=== PATIENT | female | born 1985 | race Hispanic/Latino ===

== ENCOUNTER 2018-07-21 13:23 | Outpatient (CLI) | payer OTHER ==
--- NOTE | 2018-07-21 15:45 | ULT ---
RENAL ULTRASOUND: 07/21/18 HISTORY: Recurrent urinary tract infection. patient. COMPARISON: None. TECHNIQUE: Sagittal and transverse imaging of the kidneys is performed. FINDINGS: Bilaterally, no hydronephrosis. Right kidney measures 9.8 x 6.2 x 5.2 cm. Left kidney measures 11.2 x 5.5 x 4.7 cm. Unremarkable urinary bladder. Intrauterine gestation is identified with the hea rt tone of 132 beats per minute. IMPRESSION: No hydronephrosis. POS: [facility]
== END 2018-07-21 13:24 | disposition home or self-care (01) ==
LOC: BICULT 13:23
PROVIDERS: ATTEND Family Medicine
DX: O23.40 Unspecified infection of urinary tract in pregnancy, unspecified trimester (principal)
CPT/HCPCS: 76770

== ENCOUNTER 2018-08-03 14:06 | Inpatient (IN) | payer OTHER ==
--- NOTE | 2018-08-03 16:09 | PDOC.FPROB ---
FMR OB H&P: HPI - History of Present Illness Chief Complaint: Refractory Bacteruria in History of Present Illness: 33 yo @ 26.1 wks by 8.1 wk sono is admitted for IV antibiotics. Has had hx of UTI in , most recently treated with Augmentin, currently taking it. Urine culture from PN sensitivity showed Morganella resistant to PO antibiotics. She came to be admitted for IV abx. Reports 1 week of contractions. Denies dysuria, fever/chills, vaginal discharge, bleeding. Feels movement. Reports normal PO intake. Has also had bilateral back/side pain. [facility] H&P: Current - Care : 4 Para: 3003 Gestational age: 26.1 weeks Due date: 11/08/18 Dating Criteria: 8.1 week sono Course/Complications: Persistent bacteruria in and 2 UTIs. Second one complicated by poly- antimicrobial resistance. - OB Labs Blood type: O RH: negative Antibody Screen: negative HIV: negative RPR: negative HepBsAg: negative Rubella: non-immune Urine drug screen: not done Gonorrhea: negative Chlamydia: negative Pap Smear: NILM/HPV negative on 04/05/18 1 hour gtt: 146 A1c: 5.6 H&H: 11.4/33.8 on 07/28/18 Platelets: 254 on 07/28/28 Additional labs: Quantiferon gold negative on 03/25/18. - First Trimester Ultrasound First trimester: U/S inconsistent w/ dates w/ GA of 8.1 weeks with new EDS of 11/08/18 based on U/ S. Cardiac activity noted nad sIUP confirmed. - Anatomy Survey Anatomy survey: Male fetus w/ no anamolies seen. No cervical funneling or shrotening noted. Posterior placenta. EFW: 256g (80% by Hadlock). FMR OB H&P: History - Past Medical History PMH: none - OB History OB History: Persistent bacteruria seen 05/05/18 (Morganella morganii), 06/02/18 (proteus mirabilis), & 07/02/18 (proteus). UTI on 03/25/18 + for Proteus Mirabilis pansensative treated w/ PO Augmentin. Second UTI on 07/29/18 + for morganella morganii resistant to all but rocephin, cipro, levo, zosyn, and bactrim. 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 - Family History Family History: DM FMR OB H&P: Medications - Current Home Medications: Medication Instructions Recorded Confirmed Type Amoxicillin/Potassium Clav 1 tablet PO DAILY 08/03/18 08/03/18 History [Augmentin 500-125 Tablet] Allergies/Adverse Reactions: Allergies Allergy/AdvReac Type Severity Reaction Status Date / Time No Known Allergies Allergy Verified 08/03/18 19:21 FMR OB H&P: ROS - Review of Systems General: denies: fever/chills, weight/appetite/sleep changes Genitourinary (Female): reports: contractions. denies: dysuria, hematuria, vaginal discharge, vaginal bleeding Musculoskeletal: reports: pain. denies: tenderness FMR OB H&P: Vital Signs - Maternal Vital signs: 98.1, 80, 20, 99% on RA, 132/78 FMR OB H&P: Physical Exam - Physical Exam General: NAD, awake, alert and oriented HEENT: normocephalic and atraumatic Heart: RRR, no murmurs/rubs/gallops General: CTAB, no respiratory distress, no wheezing Abdomen: soft, gravid, non-tender, bowel sound present Musculoskeletal: other (Negative Lionel punch) Skin: good tugor, capillary refill <2 seconds FMR OB H&P: A/P - Problem List (1) Complicated UTI (urinary tract infection) Status: Acute Code(s): N39.0 - URINARY TRACT INFECTION, SITE NOT SPECIFIED (2) Recurrent urinary tract infection complicating Status: Chronic Code(s): O23.40 - UNSP INFECTION OF URINARY TRACT IN , UNSP TRIMESTER (3) Rubella non-immune status, antepartum Status: Chronic Code(s): O99.89 - OTH DISEASES AND CONDITIONS COMPL PREG/ CHLDBRTH; Z28.3 - UNDERIMMUNIZATION STATUS (4) Rh negative status during Status: Chronic Code(s): O26.899 - OTH RELATED CONDITIONS, UNSPECIFIED TRIMESTER; Z67.91 - UNSPECIFIED BLOOD TYPE, RH NEGATIVE (5) BMI 32.0-32.9,adult Status: Chronic Code(s): Z68.32 - BODY MASS INDEX (BMI) 32.0-32.9, ADULT Discussion: Date/Time: 08/03/18 1607 Persistent bacteriuria in - VSS, normal WBC. No current concern for pyelo. - has been currently taking Augmentin - will get UA, Ucx - Tolerating PO intake, will not start IVF at this time. - previous Ucx grew Morganella sensitive to Rocephin. Start Rocephin (08/03). Rubella non-immune Rh negative Diet: Regular Dispo: Admit to inpatient for IV antibiotics This H&P was discussed with Dr. Samuels and Dr. Couch who agree with the above documentation and plan. FMR OB H&P: Upper Level - Discussion Upper Level Attestation: Date/Time: 08/03/18 191 33 y/o F @ 26.1 wks w/ hx of persistent bacteruria w/ recent UCx growing Morganella resistant to PO abx direct admitted for IV abx from [facility]. Vital signs per international account executive note No abnormal findings on exam Outside UCx results requested Assessment and Plan: 33 y/o F w/: 1) Persistent Bacteriuria in - Will admit and start patient on IV Rocephin as recent UCx showed Morganella growing to be sensitive to this - Repeat UCx prior to starting IV abx - IVF at [facility] - CBC and CMP pending at time of note 2) Other problems per international account executive note Addendum - Attending - Attending Attestation Date/Time: 08/04/18 7990 I personally evaluated the patient and discussed the management with Dr. Callaway and Abril on 08/03/2018. I agree with and repeated the History, Examination, Assessment and Plan documented above with any addition or exceptions noted below. Asymptomatic on my exam. Will d/w Dr. Berkowitz in AM as unusual infection and has previously been Sn to ceftriaxone and persists despite previous treatment.
[2018-08-03] MEDS ORDERED: Ondansetron ODT 4 MG TAB PO PRN (16:24)
[2018-08-03] MEDS ORDERED: Acetaminophen 325 MG TAB PO PRN (16:24)
[2018-08-03] MEDS ORDERED: Lactated Ringer's 1,000 ML IV SCH (16:30)
[2018-08-03 17:20] LABS: #Eosinphils 0.1 thou/uL (0.0-0.7); #Lymphocytes 2.1 thou/uL (1.20-3.40); #Monocytes 0.4 thou/uL (0.11-0.59); #Neutrophils 4.4 thou/uL (1.40-6.50); %Basophils 0.4 % (0.0-1.0); %Eosinophils 1.3 % (0.0-10.0); %Lymphocytes 29.4 % (21.0-51.0); %Monocytes 6.3 % (0.0-10.0); %Neutrophils 62.7 % (42.0-75.0); Hemoglobin 12.4 g/dL (12.0-16.0); Mean Corpuscular Volume 85.2 fL (78.0-98.0); Mean Platelet Volume 7.1 fL (7.4-10.4); Platelet Count 245 thou/uL (130-400); RBC Distribution Width 11.6 % (11.5-14.5); Red Blood Cell (RBC) Count 4.27 mill/uL (4.20-5.40); White Blood Cell (WBC) Count 7.1 thou/uL (4.8-10.8)
[2018-08-03 17:47] LABS: ALT (SGPT) 15 U/L (8-55); AST (SGOT) 14 U/L (5-34); Albumin 3.7 g/dL (3.5-5.0); Alkaline Phosphatase 93 U/L (40-150); Anion Gap 13 mmol/L (10-20); BUN (Urea Nitrogen) 6 mg/dL (7.0-18.7); Bilirubin, Total 0.2 mg/dL (0.2-1.2); Calc. Creatinine Clearance 0 mL/min (70-130); Calcium 9.3 mg/dL (7.8-10.44); Carbon Dioxide 22 mmol/L (22-29); Chloride 106 mmol/L (98-107); Estimated GFR-MDRD Greater than 90; Globulin 3.3 g/dL (2.4-3.5); Glucose 80 mg/dL (70-105); Potassium 3.7 mmol/L (3.5-5.1); Sodium 137 mmol/L (136-145)
[2018-08-03] MEDS ORDERED: Sodium Chloride 0.9% 10 ML ONE (17:48)
[2018-08-03 18:24] VITALS: BMI 34.0
[2018-08-03 19:27] LABS: Bilirubin Negative (Negative); Blood, Urine Negative (Negative); Clarity CLEAR (Clear); Glucose, Urine (Dipstick) Negative (Negative); Leukocyte Negative (Negative); Nitrite Negative (Negative); Protein, Urine (Dipstick) Trace mg/dL (Neg-Trace); Specific Gravity, Urine 1.022 (1.002-1.036)
[2018-08-03 19:30] LABS: Bacteria/HPF None Seen HPF (None Seen); Hyaline Casts/LPF 0-3 HYALINE CAST LPF (0-3 Hyaline); Pathc Cast-AUWi Flag 0.14 (0-2.49); RBC/HPF 0-3 HPF (0-3); WBC/HPF 0-3 HPF (0-3)
[2018-08-03] MEDS: cefTRIAXone\\ROCEPHIN 1 GM in Sodium Chloride 0.9% 100 ML IVPB SCH (20:25)
[2018-08-04 06:10] LABS: #Eosinphils 0.1 thou/uL (0.0-0.7); #Lymphocytes 2.3 thou/uL (1.20-3.40); #Monocytes 0.4 thou/uL (0.11-0.59); #Neutrophils 3.4 thou/uL (1.40-6.50); %Basophils 0.8 % (0.0-1.0); %Eosinophils 1.3 % (0.0-10.0); %Lymphocytes 36.9 % (21.0-51.0); %Monocytes 5.7 % (0.0-10.0); %Neutrophils 55.4 % (42.0-75.0); Hemoglobin 11.4 g/dL (12.0-16.0); Mean Corpuscular HGB CONC 34.2 g/dL (32.0-36.0); Mean Corpuscular Hemoglobin 29.1 pg (27.0-31.0); Mean Corpuscular Volume 85.1 fL (78.0-98.0); Mean Platelet Volume 7.4 fL (7.4-10.4); Platelet Count 232 thou/uL (130-400); RBC Distribution Width 11.5 % (11.5-14.5); Red Blood Cell (RBC) Count 3.92 mill/uL (4.20-5.40); White Blood Cell (WBC) Count 6.2 thou/uL (4.8-10.8)
--- NOTE | 2018-08-04 06:35 | PDOC.OBAPN ---
FMR OB AP PN: Sub - Interval History Hospital Day: 2 Chief Complaint: Complicated UTI in . Indentification: Interval History: Admitted last night for complicated UTI and started on IV Abx. FMR OB AP PN: Obj - Maternal Vital signs: BP: 97/55 HR: 69 RR: 20 Tmax: 98F Pox: 98% on RA Wt: 81.647 kg - Urine output I&O: 08/02/18 08/03/18 08/04/18 06:59 06:59 06:59 Intake Total 820 Output Total 500 Balance 320 - Heart Tones Baseline: 136 (obtained via doppler @ ~00:36) FMR OB AP PN: Exam - Physical Exam General: NAD, awake, alert and oriented HEENT: normocephalic and atraumatic, grossly normal vision, grossly normal hearing Neck: supple, FROM Heart: RRR, normal S1/S2, no murmurs/rubs/gallops, pulses present, no edema General: CTAB, no respiratory distress, good air movement, no rales/rhonchi, no wheezing Abdomen: soft, gravid, non-tender, bowel sound present Musculoskeletal: pulses present, FROM in all four extremities Neurological: cranial nerves II through XII intact, sensation to pain,touch and proprioception grossly normal, no focal deficit Skin: no rash, good tugor, capillary refill <2 seconds Lymphatic: no unusual bruising or bleeding, no purpura, no petechia Psychiatric: intact recent and remote memory, good judgement and insight, normal mood and affect FMR OB AP PN: Data - Labs Lab results: Laboratory Results - last 24 hr 08/03/18 08/03/18 08/03/18 17:11 17:11 19:00 WBC 7.1 RBC 4.27 Hgb 12.4 Hct 36.3 MCV 85.2 MCH 29.0 MCHC 34.0 RDW 11.6 Plt Count 245 MPV 7.1 L Neutrophils % 62.7 Lymphocytes % 29.4 Monocytes % 6.3 Eosinophils % 1.3 Basophils % 0.4 Neutrophils # 4.4 Lymphocytes # 2.1 Monocytes # 0.4 Eosinophils # 0.1 Basophils # 0.0 Sodium 137 Potassium 3.7 Chloride 106 Carbon Dioxide 22 Anion Gap 13 BUN 6 L Creatinine 0.57 L Estimated GFR (MDRD) Greater than 90 Glucose 80 Calcium 9.3 Total Bilirubin 0.2 AST 14 ALT 15 Alkaline Phosphatase 93 Serum Total Protein 7.0 Albumin 3.7 Globulin 3.3 Albumin/Globulin Ratio 1.1 L Urine Color YELLOW Urine Clarity CLEAR Urine pH 6.0 Ur Specific [place] 1.022 Urine Protein Trace Urine Glucose (UA) Negative Urine Ketones 40 H Urine Blood Negative Urine Nitrite Negative Urine Bilirubin Negative Urine Urobilinogen 1.0 Ur Leukocyte Esterase Negative Urine RBC 0-3 Urine WBC 0-3 Ur Squamous Epith Cells 7-10 H Urine Bacteria None Seen Hyaline Casts 0-3 HYALINE CAST 08/04/18 05:47 WBC 6.2 RBC 3.92 L Hgb 11.4 L Hct 33.3 L MCV 85.1 MCH 29.1 MCHC 34.2 RDW 11.5 Plt Count 232 MPV 7.4 Neutrophils % 55.4 Lymphocytes % 36.9 Monocytes % 5.7 Eosinophils % 1.3 Basophils % 0.8 Neutrophils # 3.4 Lymphocytes # 2.3 Monocytes # 0.4 Eosinophils # 0.1 Basophils # 0.0 Sodium Potassium Chloride Carbon Dioxide Anion Gap BUN Creatinine Estimated GFR (MDRD) Glucose Calcium Total Bilirubin AST ALT Alkaline Phosphatase Serum Total Protein Albumin Globulin Albumin/Globulin Ratio Urine Color Urine Clarity Urine pH Ur Specific [place] Urine Protein Urine Glucose (UA) Urine Ketones Urine Blood Urine Nitrite Urine Bilirubin Urine Urobilinogen Ur Leukocyte Esterase Urine RBC Urine WBC Ur Squamous Epith Cells Urine Bacteria Hyaline Casts FMR OB AP PN: A/P - Problem List (1) Complicated UTI (urinary tract infection) Status: Acute Code(s): N39.0 - URINARY TRACT INFECTION, SITE NOT SPECIFIED (2) Recurrent urinary tract infection complicating Status: Chronic Code(s): O23.40 - UNSP INFECTION OF URINARY TRACT IN , UNSP TRIMESTER (3) Rubella non-immune status, antepartum Status: Chronic Code(s): O99.89 - OTH DISEASES AND CONDITIONS COMPL PREG/ CHLDBRTH; Z28.3 - UNDERIMMUNIZATION STATUS (4) Rh negative status during Status: Chronic Code(s): O26.899 - OTH RELATED CONDITIONS, UNSPECIFIED TRIMESTER; Z67.91 - UNSPECIFIED BLOOD TYPE, RH NEGATIVE (5) BMI 32.0-32.9,adult Status: Chronic Code(s): Z68.32 - BODY MASS INDEX (BMI) 32.0-32.9, ADULT Disposition: Complicated UTI: - Per [facility] records, most recently diagnosed UTI last week resistant to augmentin which the patient has been taking. UA on admission showed only ketones & 7-10 squams. No bacteria, LE, nitrite, or blood noted. Ucx pending. - Will likely continue IV Abx pending urine Cx given patient's history or recurrent UTI and bacteruria. Will encourage more frequent and complete bladder emptying. - Tolerating PO intake, will encourage increased PO hydration given UA results and the fact that evening nurse reported having to encourage patient to urinate all night. Rubella non-immune: - Aware, will need MMR vaccine post-. Rh negative: - Aware, will need Rhogam injection at 28 weeks gestation. Obesity: - Aware, will encourage lifestyle changes. Diet: Regular IVFs: none Abx: Rocephin (day #2) Dispo: Will likely stay at least one additional night pending urine culture results. Discussion: Date/Time: 08/04/18631 This H&P was discussed with Dr. Nguyen and Dr. Couch who agree with the above documentation and plan. Addendum - Attending - Attending Attestation Date/Time: 08/04/182044 I personally evaluated the patient and discussed the management with Dr. Stroud and Patrick. I agree with and repeated the History, Examination, Assessment and Plan documented above with any addition or exceptions noted below. Would d/w ID as unusual organism and has failed this treatment IM previously.
[2018-08-04 06:37] LABS: ALT (SGPT) 12 U/L (8-55); AST (SGOT) 12 U/L (5-34); Albumin 3.2 g/dL (3.5-5.0); Alkaline Phosphatase 79 U/L (40-150); Anion Gap 11 mmol/L (10-20); BUN (Urea Nitrogen) 5 mg/dL (7.0-18.7); Bilirubin, Total 0.3 mg/dL (0.2-1.2); Calc. Creatinine Clearance 202 mL/min (70-130); Calcium 8.8 mg/dL (7.8-10.44); Carbon Dioxide 21 mmol/L (22-29); Chloride 108 mmol/L (98-107); Estimated GFR-MDRD Greater than 90; Globulin 2.7 g/dL (2.4-3.5); Glucose 71 mg/dL (70-105); Potassium 3.5 mmol/L (3.5-5.1); Protein, Total 5.9 g/dL (6.0-8.3); Sodium 136 mmol/L (136-145)
[2018-08-04] MEDS: Prenatal Vitamin 1 TAB PO SCH (08:03)
[2018-08-04] MEDS: cefTRIAXone\\ROCEPHIN 1 GM in Sodium Chloride 0.9% 100 ML IVPB SCH (20:56)
--- NOTE | 2018-08-05 06:13 | PDOC.OBAPN ---
R OB AP PN: Sub - Interval History Hospital Day: 3 Chief Complaint: Complicated UTI Indentification: Interval History: Patient is on day #3 of IV abx. Urine Cx from admission grew Proteus. R OB AP PN: Obj - Maternal Vital signs: BP: 103/59 HR: 75 RR: 16 Tmax: 98.3F Pox: 96% on RA Wt: 81.647 kg - Urine output I&O: 08/03/18 08/04/18 08/05/18 06:59 06:59 06:59 Intake Total 820 336 Output Total 500 Balance 320 336 - Heart Tones Baseline: 137 (@ 21:00 on 08/04/18) [facility] OB AP PN: Exam - Physical Exam General: NAD, awake, alert and oriented HEENT: normocephalic and atraumatic, grossly normal vision, grossly normal hearing Neck: supple, FROM Heart: RRR, normal S1/S2, no murmurs/rubs/gallops, pulses present, no edema General: CTAB, no respiratory distress, good air movement, no rales/rhonchi, no wheezing Abdomen: soft, gravid, non-tender, bowel sound present Musculoskeletal: FROM in all four extremities Neurological: cranial nerves II through XII intact, sensation to pain,touch and proprioception grossly normal, no focal deficit Skin: no rash, good tugor, capillary refill <2 seconds, no jaundice Lymphatic: no unusual bruising or bleeding, no purpura, no petechia Psychiatric: intact recent and remote memory, good judgement and insight, normal mood and affect [facility] OB AP PN: Data - Labs Lab results: Laboratory Results - last 24 hr 08/04/18 05:47 Sodium 136 Potassium 3.5 Chloride 108 H Carbon Dioxide 21 L Anion Gap 11 BUN 5 L Creatinine 0.52 L Estimated GFR (MDRD) Greater than 90 Glucose 71 Calcium 8.8 Total Bilirubin 0.3 AST 12 ALT 12 Alkaline Phosphatase 79 Serum Total Protein 5.9 L Albumin 3.2 L Globulin 2.7 Albumin/Globulin Ratio 1.2 Microbiology 08/03/18 19:00 Urine clean catch Urine Culture - Preliminary Presumptive Proteus mirabilis [facility] OB AP PN: A/P - Problem List (1) Asymptomatic bacteriuria during Status: Acute Code(s): O99.89 - OTH DISEASES AND CONDITIONS COMPL PREG/ CHLDBRTH; R82.71 - BACTERIURIA (2) Complicated UTI (urinary tract infection) Status: Acute Code(s): N39.0 - URINARY TRACT INFECTION, SITE NOT SPECIFIED (3) Recurrent urinary tract infection complicating Status: Chronic Code(s): O23.40 - UNSP INFECTION OF URINARY TRACT IN , UNSP TRIMESTER (4) Rubella non-immune status, antepartum Status: Chronic Code(s): O99.89 - OTH DISEASES AND CONDITIONS COMPL PREG/ CHLDBRTH; Z28.3 - UNDERIMMUNIZATION STATUS (5) Rh negative status during Status: Chronic Code(s): O26.899 - OTH RELATED CONDITIONS, UNSPECIFIED TRIMESTER; Z67.91 - UNSPECIFIED BLOOD TYPE, RH NEGATIVE (6) BMI 32.0-32.9,adult Status: Chronic Code(s): Z68.32 - BODY MASS INDEX (BMI) 32.0-32.9, ADULT Disposition: Asymptomatic persistent bacteruria in : - UA on admission negative but culture now showing suspected Proteus Mirabilis which is different from recent culture done in clinic on 07/28 which grew nearly hernandez-resistant Morganella. Patient has alternated between proteus and morganella throughout . - Due to history will give 3rd dose of IV Rocephin today and encourage increased PO hydration and regular bladder emptying. - Will get a straight cath UA sample today to assess effectiveness of treatment and get a renal U/S as well to r/o any potential predisposing factors such as a stone that could explain the patient's persistent bacteria. Complicated UTI: - Per [facility] records, most recently diagnosed UTI last week resistant to augmentin which the patient has been taking. UA on admission showed only ketones & 7-10 squams. No bacteria, LE, nitrite, or blood noted. Ucx show 10-25k of proteus not consistent with a UTI. - However, given patient's history and UA from admission will give a 3rd dose of IV rocephin today. Rubella non-immune: - Aware, will need MMR vaccine post-. Rh negative: - Aware, will need Rhogam injection at 28 weeks gestation. Obesity: - Aware, will encourage lifestyle changes. Diet: Regular IVFs: none Abx: Rocephin (day #3) GI PPx: none VTE PPx: SCDs Dispo: Possible d/c later today after getting third dose of IV abx. Will continue to encourage increased PO hydration and regular bladder emptying. Discussion: Date/Time: 08/05/18 0611 This H&P was discussed with Dr. Nguyen and Dr. Barajas who agree with the above documentation and plan. Addendum - Attending - Attending Attestation Date/Time: 08/05/18 3900 I personally evaluated the patient and discussed the management with Dr. Stroud. I agree with the History, Examination, Assessment and Plan documented above with any addition or exceptions noted below. Discharge planned for today.
[2018-08-05] MEDS: Prenatal Vitamin 1 TAB PO SCH (09:21)
[2018-08-05 11:48] VITALS: BP 122/67; TEMP 98.1
[2018-08-05] MEDS ORDERED: cefTRIAXone\\ROCEPHIN 1 GM in Sodium Chloride 0.9% 100 ML IVPB SCH (12:00)
[2018-08-05 13:37] LABS: Bilirubin Negative (Negative); Blood, Urine Negative (Negative); Clarity CLOUDY (Clear); Glucose, Urine (Dipstick) Negative (Negative); Leukocyte Small (Negative); Nitrite Negative (Negative); Protein, Urine (Dipstick) 30 mg/dL (Neg-Trace); Specific Gravity, Urine 1.026 (1.002-1.036)
[2018-08-05 13:48] LABS: Bacteria/HPF None Seen HPF (None Seen); Hyaline Casts/LPF 7-10 HYALINE CAST LPF (0-3 Hyaline); Pathc Cast-AUWi Flag 2.32 (0-2.49)
[2018-08-05 13:52] LABS: Renal Epithelial None Seen HPF (0-3); Transitional Epithelial NONE SEEN HPF (0-3)
--- NOTE | 2018-08-05 14:16 | ULT ---
RENAL ULTRASOUND: Date: 08-05-18 Provided Clinical History: Persistent bacteriuria. FINDINGS: Right kidney measures about 12 x 6.3 x 5.3 cm and demonstrates no evidence for hydronephrosis or mass . Left kidney measures about 11.5 x 5.5 x 5.6 cm and demonstrates no evidence for hydronephrosis or mas s. Urinary bladder residual volume is 8.5 cc. The urinary bladder is not well evaluated due to its incom pletely distended status. IMPRESSION: 1. No evidence for hydronephrosis. 2. Negligible post void residual. POS: [facility]
--- NOTE | 2018-08-06 10:25 | DIS ---
DATE OF ADMISSION: 08/03/2018 DATE OF DISCHARGE: 08/05/2018 RESIDENT: Lakeisha Stroud MD ADMITTING ATTENDING: Jim Couch MD. DISCHARGE ATTENDING: Jose Barajas MD. CONSULT: Infectious Disease, Dr. Fer Berkowitz. PROCEDURES: Renal ultrasound on 08/05/2018, which showed no evidence for hydronephrosis and a negligible postvoid residual. PRIMARY DIAGNOSES: 1. Asymptomatic persistent bacteriuria in . 2. Complicated urinary tract infection in . SECONDARY DIAGNOSES: 1. Rubella nonimmune, antepartum. 2. Rh-negative status during . 3. Elevated BMI in . 4. Second trimester of single intrauterine . DISCHARGE MEDICATIONS: Bactrim DS one tab p.o. b.i.d. for 2 weeks. DISCONTINUED MEDICATIONS: Augmentin 500/125 one tablet p.o. daily. HOSPITAL COURSE: The patient is a 33-year-old, G4, P3-0-0-3, who presented to the hospital by recommendation of her primary care physician for persistent bacteriuria and complicated UTI in . Of note, the patient has been noted to have persistent bacteriuria since the first trimester of her alternating between species of Morganella and Proteus in her urine. She had one UTI in the first trimester that was successfully treated with Augmentin, but her most recent UA in clinic on July 28, 2018, was significant for UTI due to Morganella that was resistant to all antibiotics with the exception of Rocephin, ciprofloxacin, levofloxacin, Zosyn, and Bactrim. Due to the patient's complicated history, it was recommended that she will be admitted to the hospital for a course of IV antibiotics to adequately treat her urinary tract infection. A clean catch urinalysis was obtained on presentation that was showed 10,000 to 25,000 CFU of Proteus mirabilis. However, the patient did receive 3 doses of IV Rocephin over the course of her hospitalization and Infectious Disease, Dr. Fer Berkowitz was consulted via telephone and ensured the team that this was adequate treatment for her previous noted Morganella UTI, especially if the patient was asymptomatic and there was no concern for pyelonephritis. However, before discharge, a repeat UA was obtained via straight cath and a renal ultrasound was performed to rule out any possible predisposing factors that could be contributing to the patient's persistent bacteriuria. Her renal ultrasound was negative for any hydronephrosis and had a negligible amount of postvoid residual volume in the bladder. her repeat UA was negative for any bacteria and thus, after receiving adequate treatment for her UTI diagnosed on 07/28/18, the patient was discharged home in stable condition on prophylactic antibiotics and instructed to follow up with her primary care physician within 1 week to discuss the results of her most recent UA and culture obtained prior to discharge. DISPOSITION: Stable. DISCHARGE INSTRUCTIONS: 1. Location: Home. 2. Diet: Regular diet. 3. Activity: Activity as tolerated. No restrictions. FOLLOWUP: The patient was instructed to follow up with her primary care physician at the clinic within 1 week of discharge. Job ID: [id number] [facility]
== END 2018-08-05 14:56 | disposition home or self-care (01) | DRG 833 ==
LOC: 3SE 14:06
PROVIDERS: ADMIT Student in an Organized Health Care Education/Training Program; ATTEND Student in an Organized Health Care Education/Training Program
DX: O23.42 Unspecified infection of urinary tract in pregnancy, second trimester (principal); B96.4 Proteus (mirabilis) (morganii) as the cause of diseases classified elsewhere; Z3A.26 26 weeks gestation of pregnancy; O99.89 Other specified diseases and conditions complicating pregnancy, childbirth and the puerperium; Z28.3 Underimmunization status; Z67.91 Unspecified blood type, Rh negative; O99.212 Obesity complicating pregnancy, second trimester
CPT/HCPCS: 36415; 76770; 80053; 81001; 85025; 87077; 87086; 87186; A4353; J0696; J7050

== ENCOUNTER 2018-11-08 04:36 | Inpatient (IN) | payer OTHER ==
[2018-11-08] MEDS ORDERED: Bupivacaine/Epinephrine 0.25% 30 ML VIAL ONE (05:00)
[2018-11-08] MEDS: Lactated Ringer's 1,000 ML IV SCH ×5 (05:00→17:04)
[2018-11-08 05:10] VITALS: BMI 34.0
[2018-11-08] MEDS ORDERED: Fentanyl 4 mcg/Bup 0.1% Cadd 100 ML ONE (05:14)
[2018-11-08] MEDS ORDERED: Lidocaine 1.5%/Epinephrine 1:200,000 5 ML AMPUL IJ ONE (05:17)
[2018-11-08 05:25] LABS: Hemoglobin 11.9 g/dL (12.0-16.0); Mean Corpuscular HGB CONC 33.6 g/dL (32.0-36.0); Mean Corpuscular Hemoglobin 27.3 pg (27.0-31.0); Mean Corpuscular Volume 81.4 fL (78.0-98.0); Mean Platelet Volume 8.5 fL (7.4-10.4); Platelet Count 221 thou/uL (130-400); RBC Distribution Width 13.2 % (11.5-14.5); Red Blood Cell (RBC) Count 4.36 mill/uL (4.20-5.40)
[2018-11-08] MEDS ORDERED: Lidocaine 1% (PF) 30 ML VIAL SC PRN (05:39)
[2018-11-08] MEDS ORDERED: Ondansetron PF 4 MG/2 ML Vial IVP PRN ×2 (05:39→06:01)
[2018-11-08] MEDS ORDERED: Promethazine HCl 25 MG/ML VIAL IM PRN ×2 (05:39→06:01)
--- NOTE | 2018-11-08 05:45 | PDOC.EVN ---
Event Note - Event Note Event Note: OBGYN Faculty Note Time: 540 Location: L&D Clinic Patient Patient first seen by the Resident team I have seen and evaluated the patient and agree with admission CC: CTX every 5 min HPI: 33 yo with prior SVDs at 40 weeks here for CTX, no LOF nor VB. Denies issues. Good FM. No HAs Review of Systems: complete ROS negative as per HPI Past Med: neg Past surg: neg Allergies: NKDA OB HX: prior SVDs Social: neg for etoh, smoking, drug use Physical: 135/87 afebrile 90s 18 NAD gravid EFW 7# CX 6/100/-1/BOWI Monitors: Cat 1, 150s; CTX every 5 min on toco Assessment and plan: multip, full term...active labor Plan: 1. check GBS status 2. pain meds prn (SHADI) 3. fuull admit 4. await labor progress 5. CMP...closely watch BPs
[2018-11-08] MEDS ORDERED: Naloxone HCl 0.4 mg/ml Vial IVP PRN ×2 (06:01)
[2018-11-08] MEDS ORDERED: ePHEDrine/0.9% NaCl/PF SYRINGE 50 mg/10 ml SLOW IVP PRN (06:01)
[2018-11-08] MEDS ORDERED: Eucerin (Mineral Oil/Petrolatum,White) 30 gm Jar TOP PRN (06:01)
[2018-11-08] MEDS ORDERED: Acetaminophen 325 MG TAB PO PRN (06:01)
[2018-11-08] MEDS ORDERED: Lactated Ringer's 500 ML IV PRN (06:01)
[2018-11-08] MEDS ORDERED: diphenhydrAMINE 50 MG/ML VIAL IVP PRN (06:01)
--- NOTE | 2018-11-08 06:08 | PDOC.FPROB ---
FMR OB H&P: HPI - History of Present Illness Chief Complaint: contractions Indentification: History of Present Illness: 33yo at 40w EGA by 8.1w US presents to L and D for increased pain on contractions q5-6min. Pt denies LOF/bleeding/discharge, and endorses good mvmt. Reports she has had no problems with course and is otherwise healthy. Primary Care Physician: Dr. Boni Brian FMR OB H&P: Current - Care Due date: 11/08/2018 Dating Criteria: 8.1w US - OB Labs Blood type: O RH: negative HIV: negative RPR: negative HepBsAg: negative Rubella: non-immune Gonorrhea: negative Chlamydia: negative GBS: unknown FMR OB H&P: History - Past Medical History PMH: none - OB History OB History: 3 previous vaginal deliveries - Surgical History Sx History: none - Social History Social History: denies T/A/D - Family History Family History: none FMR OB H&P: Medications - Current Allergies/Adverse Reactions: Allergies Allergy/AdvReac Type Severity Reaction Status Date / Time No Known Allergies Allergy Verified 08/03/18 19:21 FMR OB H&P: ROS - Review of Systems General: denies: fever/chills, fatigue Eyes: denies: eye pain, vision changes ENT: denies: nasal congestion, ear pain Cardiovascular: denies: chest pain, palpitation Respiratory: denies: cough, congestion Gastrointestinal: denies: abdominal pain, indigestion Genitourinary (Female): denies: incontinence, dysuria Musculoskeletal: denies: pain, stiffness Neurologic: denies: syncope, seizures Integumentary: denies: rash, lesions Endocrine: denies: cold intolerance, heat intolerance Hematologic/Lymphatic: denies: prolonged or excessive bleeding Psychological: denies: depression, anxiety FMR OB H&P: Vital Signs - Maternal Vital signs: Vital Signs - First Documented Temp Pulse Resp BP 98.9 F 87 20 135/83 11/08/18 05:02 11/08/18 05:02 11/08/18 05:02 11/08/18 05:02 - Heart Tones Baseline: 150 Variability: moderate Acceleration: absent Deceleration: absent Category: category 1 Brogan contractions every: 6 min FMR OB H&P: Physical Exam - Physical Exam General: NAD, awake, alert and oriented HEENT: grossly normal vision, grossly normal hearing Neck: supple, trachea midline Chest: non-tender to palpation Breast: symmetric Heart: RRR, normal S1/S2 General: CTAB, no respiratory distress Abdomen: soft, gravid Musculoskeletal: pulses present, no atrophy Neurological: no tremor, no focal deficit Skin: no rash, good tugor Lymphatic: no unusual bruising or bleeding, no purpura Psychiatric: intact recent and remote memory, good judgement and insight - Pelvic Exam SVE: 6/100/-1 FMR OB H&P: Results - Labs Lab results: Laboratory Results - last 24 hr 11/08/18 11/08/18 05:13 05:13 WBC 6.0 RBC 4.36 Hgb 11.9 L Hct 35.5 L MCV 81.4 MCH 27.3 MCHC 33.6 RDW 13.2 Plt Count 221 MPV 8.5 Blood Type O NEGATIVE Antibody Screen NEGATIVE FMR OB H&P: A/P Discussion: term intrauterine A- Pt in labor and wants epidural, FHT cat 1 and reassuring, mother is stable. P- full admit for delivery -anesthesia consult for epidural -CMP considering borderline BP at 135/87, denies hx of HTN -routine monitoring and antepartum care OBGYN Faculty: GBS unknown...use intrapartum risk factors to determine need for prophylaxis.
[2018-11-08] MEDS ORDERED: Fentanyl 4 mcg/Bupivacaine 0.1% Cassette 100 ML EPIDURAL SCH (06:15)
[2018-11-08] MEDS ORDERED: Communication Order-Pharmacy FS SCH (06:15)
[2018-11-08 06:20] LABS: HBSAg Index 0.38 S/CO (0-0.99); Hep B Surf Ag Non-Reactive S/CO (NonReactive)
[2018-11-08 06:45] LABS: ALT (SGPT) 16 U/L (8-55); AST (SGOT) 21 U/L (5-34); Albumin 3.6 g/dL (3.5-5.0); Alkaline Phosphatase 230 U/L (40-150); Anion Gap 14 mmol/L (10-20); BUN (Urea Nitrogen) 6 mg/dL (7.0-18.7); Bilirubin, Total 0.3 mg/dL (0.2-1.2); Calc. Creatinine Clearance 184 mL/min (70-130); Calcium 9.2 mg/dL (7.8-10.44); Carbon Dioxide 19 mmol/L (22-29); Chloride 107 mmol/L (98-107); Estimated GFR-MDRD Greater than 90; Globulin 2.8 g/dL (2.4-3.5); Glucose 82 mg/dL (70-105); Potassium 3.6 mmol/L (3.5-5.1); Protein, Total 6.4 g/dL (6.0-8.3); Sodium 136 mmol/L (136-145)
[2018-11-08 07:49] LABS: Syphilis Antibody Nonreactive (Nonreactive); Syphilis Antibody Index 0.03 S/CO (<1.00 Non-Reactive)
--- NOTE | 2018-11-08 08:05 | PDOC.EVN ---
Event Note - Event Note Event Note: CMP: Normal
--- NOTE | 2018-11-08 08:48 | PDOC.LDPN ---
Labor & Delivery Progress Note - Subjective Subjective: comfortable - Objective Vital signs reviewed and normal: yes General: NAD, resting Uterine fundus: non tender SVE: 8:45 Dilation: 9 Effacement: 100% Station: 0 FHT: category 2, variable decelerations AROM: clear fluid - Assessment (1) Current Visit: Yes Status: Acute Qualifiers: Weeks of gestation: 40 weeks Qualified Code(s): Z3A.40 - 40 weeks gestation of (2) Asymptomatic bacteriuria during Code(s): O99.89 - OT DISEASES AND CONDITIONS COMPL PREG/CHLDBRTH; R82.71 - BACTERIURIA Current Visit: No Status: Acute (3) Rh negative status during Code(s): O26.899 - OT RELATED CONDITIONS, UNSPECIFIED TRIMESTER; Z67.91 - UNSPECIFIED BLOOD TYPE, RH NEGATIVE Current Visit: No Status: Chronic Plan: continue plan of care -: 33 yo @ 40.0 wks by 8.1 week U/S here in Labor -AROM @ 8:45 w/ clear fluid noted. -Cat 2 strip. Had a couple variables. Pt turned to left side and resolved at this time. FHR 135. Rh negative -Will give Rhogam PP. Multiple UTI of -Pt was tx with keflex early on. Pt had multiple months ALICE negative. No longer on abx.
[2018-11-08] MEDS: NS / Oxytocin 40 units/1000ml 1,000 ML IV PRN ×2 (13:16→14:04)
--- NOTE | 2018-11-08 13:32 | PDOC.OPDEL ---
OB Operative/Delivery Note Delivery Dr/Surgeon: Roc Dumont Assist: attending: Peter Pre-Delivery Diagnosis: active labor Weeks gestation: 40 Anesthesia: epidural - Findings A Sex: male Weight: 3757 kg (will reweigh once in nursery) - 1 min: 6 - 5 min: 9 - Additional Findings/Plan Placenta delivered: spontaneous Repaired Obstetrical Laceration: none Estimated blood loss: EBL: 300 ml Compilations/Other Findings: Vaginal Delivery Delivering Physician Roc Ortega Attending Peter Procedure: Spontaneous Vaginal Delivery Anesthesia: epidural EBL: ebl of 300 ml Pre-op Diagnosis: 1. Term intrauterine in labor 2. Hx frequent UTIs, RH negative mother Post-op Diagnosis: 1. Term intrauterine , delivered 2. same as above Indications: A 33y/o female @ 40 w EGA by 8.1 wk sono presents in active labor Delivery Note: This is 33y/o female @ 40 w EGA by 8.1 wk sono who delivered a viable M at 1316. Following an uneventful antepartum course, a vigorous male was delivered over an intact perineum in the L occipitoanterior position. Anterior Shoulder and then remainder of the body delivered. Thick meconium at delivery. Nuchal cordx1. The head was held down and mouth and nares were bulb suctioned. Cord clamped and cut and cord blood and cord blood gas collected. Placenta delivered intact with a 3 vessel cord noted. Fundal massage was performed and the fundus was firm. The cervix and vagina were inspected and found to be free of lacerations. Infant went to nursery in good condition for routine care. Apgars were 6/9 at 1 & 5 minutes, respectively. Patient tolerated delivery well and went to after routine recovery/ care. Post delivery plan: routine recovery
[2018-11-08] MEDS ORDERED: Preparation H Ointment 28 GM TUBE PR PRN (16:00)
[2018-11-08] MEDS ORDERED: Benzocaine-Menthol 82.5 ML CAN TOP PRN (16:00)
[2018-11-08] MEDS ORDERED: Milk Of Magnesia 30 ML UDCUP PO PRN (16:00)
[2018-11-08] MEDS ORDERED: Bisacodyl 10 MG SUPP PR PRN (16:00)
[2018-11-08] MEDS ORDERED: Lanolin Ointment 7 GM TUBE TOP PRN (16:00)
[2018-11-08] MEDS ORDERED: Adacel (T-DAP) 0.5 ML SYRINGE IM ONE (16:00)
[2018-11-08] MEDS ORDERED: NS / Oxytocin 40 units/1000ml 1,000 ML IV SCH (16:00)
[2018-11-08] MEDS ORDERED: diphenhydrAMINE 25 MG CAP PO PRN (16:00)
[2018-11-08] MEDS ORDERED: Dextrose 5%-Lactated Ringers 1,000 ML IV SCH (17:00)
[2018-11-08] MEDS: Ibuprofen 800 MG TAB PO SCH ×2 (17:03→18:50)
[2018-11-08] MEDS: Ferrous Sulfate 325 MG TAB PO SCH (17:04)
[2018-11-08] MEDS ORDERED: Zolpidem Tartrate 5 MG TAB PO PRN (18:27)
[2018-11-08] MEDS: Docusate Calcium (SURFAK) 240 MG CAP PO SCH (23:39)
[2018-11-09] MEDS: Lactated Ringer's 1,000 ML IV SCH ×2 (06:31→09:37)
[2018-11-09] MEDS: Ibuprofen 800 MG TAB PO SCH ×2 (06:33→14:41)
--- NOTE | 2018-11-09 07:23 | PDOC.PP ---
Post Progress Note Post Day #: 1 Subjective: Pt reports doing well. Denies any pain at this time. Reports being well controlled. Reports light lochia. Reports tolerating PO. PO intake tolerated: yes Flatus: yes Ambulation: yes Vital Signs (12 hours) Temp Pulse Resp BP Pulse Ox 11/09/18 06:38 78 18 99/52 L 11/09/18 02:05 97.8 F 76 17 102/55 L 11/08/18 20:20 97.8 F 75 17 101/52 L 11/08/18 20:00 98 Weight Weight 84.368 kg - Physical Examination General: NAD Cardiovascular: no m/r/g, RRR Respiratory: clear to auscultation bilaterally, non-labored breathing Abdominal: + bowel sounds, lochia (stucco worker than period), no distention, appropriately TTP Fundus firm & at: below umbilicus Extremities: negative homans (B) Perineum: Some mild swelling noted Neurological: no gross focal deficits Psychiatric: A&Ox3, normal affect Result Diagrams: 11/08/18 05:13 11/08/18 05:13 Additional Labs: Post Labs Blood Type O NEGATIVE 11/08/18 07:05 Hep Bs Antigen Non-Reactive S/CO (NonReactive) 11/08/18 05:13 (1) Status: Acute Qualifiers: Weeks of gestation: 40 weeks Qualified Code(s): Z3A.40 - 40 weeks gestation of (2) Asymptomatic bacteriuria during Code(s): O99.89 - OTH DISEASES AND CONDITIONS COMPL PREG/CHLDBRTH; R82.71 - BACTERIURIA Status: Acute (3) Rh negative status during Code(s): O26.899 - OTH RELATED CONDITIONS, UNSPECIFIED TRIMESTER; Z67.91 - UNSPECIFIED BLOOD TYPE, RH NEGATIVE Status: Chronic - Assessment/Plan 33 yo @ 40.0 wks by 8.1 week U/S delivered BRIAN Ndiaye via on 11/08/18 -Routine Post care -Pain being well controlled. -Pain ambulatin, reports normal lochia. -Pt would like to go home today. Will d/c pending babies bilirubin Rh negative -Will give Rhogam PP. Multiple UTI of -Pt was tx with keflex early on. Pt had multiple months ALICE negative. No longer on abx. -No symptoms at this time.
[2018-11-09 07:52] LABS: Hemoglobin 8.7 g/dL (12.0-16.0); Mean Corpuscular HGB CONC 31.8 g/dL (32.0-36.0); Mean Corpuscular Hemoglobin 26.4 pg (27.0-31.0); Mean Platelet Volume 8.4 fL (7.4-10.4); Platelet Count 187 thou/uL (130-400); RBC Distribution Width 13.2 % (11.5-14.5); Red Blood Cell (RBC) Count 3.31 mill/uL (4.20-5.40); White Blood Cell (WBC) Count 11.5 thou/uL (4.8-10.8)
[2018-11-09] MEDS: Ferrous Sulfate 325 MG TAB PO SCH (09:53)
[2018-11-09] MEDS: Docusate Calcium (SURFAK) 240 MG CAP PO SCH (09:53)
[2018-11-09 12:18] VITALS: BP 101/51; TEMP 98.2
[2018-11-09] MEDS ORDERED: Measles/Mumps/Rubella 10 MCG/0.5 ML VIAL SC ONE (15:30)
== END 2018-11-09 17:00 | disposition home or self-care (01) | DRG 807 ==
LOC: L&D/OP 04:36 → L&D 05:18 → 3SW 16:05
PROVIDERS: ADMIT Obstetrics & Gynecology; ATTEND Obstetrics & Gynecology
PROC: 10E0XZZ Delivery of Products of Conception, External Approach (ICD-10-PCS; principal; 2018-11-08)
DX: O48.0 Post-term pregnancy (principal); Z37.0 Single live birth; O99.89 Other specified diseases and conditions complicating pregnancy, childbirth and the puerperium; R82.71 Bacteriuria; O77.0 Labor and delivery complicated by meconium in amniotic fluid; O69.81X0 Labor and delivery complicated by cord around neck, without compression, not applicable or unspecified; Z3A.40 40 weeks gestation of pregnancy; Z67.91 Unspecified blood type, Rh negative; Z87.440 Personal history of urinary (tract) infections
CPT/HCPCS: 36415; 36416; 51702; 80053; 85027; 85461; 86780; 86850; 86900; 86901; 87340; 90384; 90707; 96372; 99285; J2405; J3490